=== PATIENT | female | born 1985 | race African-American/Black ===

== ENCOUNTER 2017-10-17 04:26 | Emergency (ER) | payer MEDICAID ==
[~2017-10-17] VITALS: Ht 165.1 cm; Wt 80.0 kg
[~2017-10-17 04:26] MED LIST: LORTA5 PO; TOBRA.3%O RIGHT EYE
[2017-10-17 04:28] VITALS: BP 116/70; PULSE 74; RESP 16; TEMP 98.4; O2SAT 100
[2017-10-17] MEDS ORDERED: DEXAMETHASONE SOD PHOS 4 MG/ML VIAL IM ONE (05:00)
[2017-10-17] MEDS ORDERED: ACETAMINOPHEN 325 MG TAB PO ONE (05:00)
--- NOTE | 2017-10-17 05:00 | PD ---
HPI Chief Complaint: ENT Complaint Time Seen by Provider: 04:51 Travel History International Travel<30 days: No Contact w/Intl Traveler<30days: No Traveled to known affect area: No History of Present Illness HPI The patient is a 31-year-old female who presents to the emergency department for sore throat of 3 days duration. The patient complains of a sore throat, pain with swallowing, and mild loss of voice. She also complains of intermittent headache, mild nasal congestion, and occasional dry nonproductive cough. She did have mild nausea, however, said no vomiting or diarrhea. She denies abdominal pain. She denies any myalgias or arthralgias. She denies any sick contacts at home. She did not receive an influenza vaccination this year. Symptoms are moderate, she has been using over-the- counter sore throat lozenges without any alleviation of her symptoms. [facility] Past Medical History Medical History: Denies Significant Hx ?: Not Past Surgical History Surgical History: No Previous Surgery Social History Alcohol Use: No Tobacco Use: No Substance Use: No Allergies-Medications (Allergen,Severity, Reaction): Coded Allergies: No Known Allergies (Unverified Adverse Reaction, Unknown, 10/17/17) Reported Meds & Prescriptions Reported Meds & Active Scripts Active No Active Prescriptions or Reported Medications Review of Systems Except as stated in HPI: all other systems reviewed are Neg General / Constitutional: No: Fever HENT: Positive: Sore Throat, Congestion, Other (Loss of voice) Cardiovascular: No: Chest Pain or Discomfort Respiratory: Positive: Cough, No: Shortness of Breath Gastrointestinal: Positive: Nausea, No: Vomiting, Diarrhea, Abdominal Pain Musculoskeletal: No: Myalgias Skin: No Rash Physical Exam Narrative GENERAL: Awake, alert, pleasant 31-year-old female who appears her stated age and is in no acute respiratory distress. SKIN: Focused skin assessment warm/dry. HEAD: Atraumatic. Normocephalic. EYES: Pupils equal and round. No scleral icterus. No injection or drainage. ENT: No nasal bleeding or discharge. Oropharynx reveals erythema. No exudate. TMs are translucent. EACs are clear. NECK: Trachea midline. No JVD. CARDIOVASCULAR: Regular rate and rhythm. No murmur appreciated. RESPIRATORY: No accessory muscle use. Clear to auscultation. Breath sounds equal bilaterally. GASTROINTESTINAL: Abdomen soft, non-tender, nondistended. No rebound tenderness. MUSCULOSKELETAL: No obvious deformities. No clubbing. No cyanosis. No edema. NEUROLOGICAL: Awake and alert. No obvious cranial nerve deficits. Motor grossly within normal limits. Normal speech. PSYCHIATRIC: Appropriate mood and affect; insight and judgment normal. Data Data Last Documented VS Vital Signs Date Time Temp Pulse Resp B/P (MAP) Pulse Ox O2 Delivery O2 Flow Rate FiO2 10/17/17 04:28 98.4 74 16 116/70 (85) 100 Orders Orders Dexamethasone Inj (Decadron Inj) (10/17/17 05:00) Group A Rapid Strep Screen (10/17/17 04:55) Acetaminophen (Tylenol) (10/17/17 05:00) Strep Culture (Group A) (10/17/17 05:05) Ed Discharge Order (10/17/17 05:43) MDM Medical Decision Making Medical Screen Exam Complete: Yes Emergency Medical Condition: Yes Medical Record Reviewed: Yes Interpretation(s) Date/Time Source Procedure Growth Status 10/17/17 05:05 Throat Group A Streptococcus Screen Pending Received 10/17/17 05:05 Throat Group A Streptococcus Screen ([place]) - Final Complete Differential Diagnosis Differential diagnosis includes pharyngitis, strep pharyngitis, viral pharyngitis, URI, laryngitis, viral syndrome, influenza. Narrative Course Strep screen was sent to lab. The patient was administered Decadron 8 mg IM. The patient was administered Tylenol 650 mg orally. The patient strep screen is negative. The patient's pharyngitis and laryngitis most likely are viral. The patient is advised to alternate Tylenol and Motrin for pain and fever, plenty fluids to stay hydrated, follow-up with a primary physician. Return if symptoms worsen or progress. Diagnosis Primary Impression: Viral pharyngitis Additional Impression: Laryngitis Patient Instructions: General Instructions Additional Instructions: Alternate Tylenol and Motrin as needed for pain and fever. Follow-up with a primary physician. Work excuse for 2 days. Please provide the patient a copy of her strep results at discharge. Return if symptoms worsen or progress. Scripts No Active Prescriptions or Reported Meds Disposition: DISCHARGE HOME Condition: Stable Ricardo Vazquez MD Oct 17, 2017 05:00
== END 2017-10-17 06:08 | disposition home or self-care (01) ==
LOC: NEPC 04:26
DX: J02.8 Acute pharyngitis due to other specified organisms (principal); J04.0 Acute laryngitis; R11.0 Nausea; R05 Cough; R51 Headache; R09.81 Nasal congestion
CPT/HCPCS: 87081; 87880; 96372; 99283; J1100